=== PATIENT | female | born 1940 | race Caucasian/White ===

== ENCOUNTER → 2019-06-22 | Outpatient (RCR) | payer OTHER ==
--- NOTE | 2019-06-05 16:56 | CARECAPL ---
Assessment Account #s: Initial Assessment General Diagnoses: STEMI, PTCA Date of event: February 07, 2019 Physician: Sergei Ibarra Date Entered Program: Jun 05, 2019 Risk strat for cardiac event: High Exercise Date: Jun 05, 2019 Assessment: Initial Assessment Stages of change: Contemplate Exercise Prescription Plan TO EDUCATE AND BUILD ENDURANCE THROUGH MONITORED EXERCISE Modalities initiated: Treadmill (WILL ADD), Cardio-Strider (WILL ADD), Nustep (WILL ADD), Arm Aerometer (WILL ADD), Dumbells (WILL ADD), Recumbent Bike (WILL ADD) Frequency: 3 Duration (Minutes) 30 - 60 minutes total exercise a day. 15 - 20 work intervals in minutes. PRN rest intervals in minutes. Functional Capacity Goal Sustained Metabolic Equivalent of a task (MET) goal of 2.5-3.5 for 15-20 minutes. Intensity: 3-Moderate Progression (METS) Increase by: 0.5 METS every: 5 sessions TOLERATED Angina with ex: No Target Heart Rate REST +35-40 Resistance Training: Yes Weight (pounds): 1 Reps: 12-15 Hypertension: Yes Hypertension controlled with: Medication (METOPROLOL/ENTRESTO) Resting 145/64 Medications Scheduled Amiodarone Hcl (Pacerone), 200 MG PO DAILY, (Reported) Aspirin (Ecotrin), 81 MG PO DAILY, (Reported) Atorvastatin Calcium (Atorvastatin Calcium), 1 TAB PO DAILY, (Reported) Bisacodyl (Dulcolax), 5 MG PO ASDIRECTED, (Reported) Clopidogrel Bisulfate (Plavix), 75 MG PO DAILY, (Reported) Furosemide (Furosemide), 1 TAB PO BID, (Reported) Metoprolol Succinate (Metoprolol Succinate), 1 TAB PO DAILY, (Reported) Potassium Chloride (K-Tab ER), 20 MEQ PO DAILY, (Reported) Sacubitril/Valsartan (Entresto 24 mg-26 mg Tablet), 1 TAB PO BID, (Reported) Med Change: No Intervention Education: Self pulse (EXPLAINED TAKING OWN PULSE), Ex safety (DISCUSSED WARM UP/COOL DOWN, STRETCHING), S/S to report (DISCUSSED CHEST PAIN/SOB), Low NA diet (EDUCATED ON LOW SODIUM DIET/NOT ADDING SALT TO FOOD), RPE Scale (EDUCATED ON SCALE OF DIFFICULTY FOR EQUIPMENT), warm up/cool down (REVIEWED IMPORTANCE OF WARM UP/COOL DOWN PRIOR TO AND FOLLOWING EXERCISE), Physical Active (DISCUSSED IMPORTANCE OF CONTINUED EXERCISE FOLLOWING CARDIAC REHAB PROGRAM) Target Goals Individual exercise Rx (1) BP 140/90 or 130/80 if DM or CKD (1) Aerobic active 30+min 5 days per week (1) Nutrition Date: Jun 05, 2019 Assessment: Initial Assessment Stages of change: Contemplate Lipid- med/supplement ATORVASTATIN 80 MG DAILY Med Change: No Diabetes Diabetes: No Monitor Blood Sugar at home: No Medication Change: No Weight Management Weight (lbs): 136 Height (inches): 65 Waist Circumference (Inches): 37.5 BMI: 22.6 Weight goal: 130 Special Diet: low salt, mediteranean diet, low-fat Alcohol: none Diet Access Tool: Rate your plate Score: 59 Current Weight (pounds): 136 Weight Goal 130 Intervention 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 Nurse/patient discussion: Yes Dietary Goals DECREASE PORTIONS/LOW SALT Diet Class: Yes (WILL SEE STUNNER WHILE IN PROGRAM) Referral to Diabetes education: No Referral to lipid clinic: No Referral to weight mangement p: No Education Eating Healthy Target goal LDL-C<100 if triglycerides are >200 Non-HDL-C should be <130 (1) LDL-C<70 for high risk patients (4) HbA1c<7% (1) BMI<25 Waist cir<40in M/<35in F (1) Education Date: Jun 05, 2019 Assessment: Initial Assessment Learning Barriers: ready Knowledge Test Score: 8 Stages of change: Contemplate Family Support: Yes Tobacco use: No Tobacco Use Smokeless tobacco: No Intervention Referral to smoking cessation: No Individual education and couns: No Tobacco Adjunct: No Education class schedule given: No Attended education classes: No Education: CAD, Risk factors, med compliance, cardiac A&P, Angina S/S, Sexuality Target Goals Complete cessation of tobacco use (1). Psychosocial Date: Jun 05, 2019 Assessment: Initial Assessment Psych Test (Initial/Discharge) Tool Used: Other (PHQ-9) Stages of change: Contemplate Intervention Physician Consult: No Physician Referral: No Med Change: No Stress Management Class: No Uses Stress Management Skills: Yes Education Education: Coping Techniques (RELAXATION,LISTENING TO MUSIC, READING), S/S depression (WITHDRAWAL, LACK OF INTEREST AND APPETITE), Relaxation Techniques (READING, LISTENING TO MUSIC, QUIET TIME) Target Goal Assess presence or absence of depression using a valid screening tool (1). Maximize coping skills (2). Positive support system (2). Patient/Program Goal Preventative Medication: Yes Aspirin, Yes Clopidogrel, Yes Beta blockade, Yes Statin/OTR lipid Lowering Fall Risk Assess: Yes (NOT A FALL RISK) Provider Assessment Session Number: 1 Provider Assessment: Proceed with rehab Wade Tucker RN Jun 05, 2019 16:56
[~2019-06-22] MED LIST: ATOR80TA59 PO; DULC5TAB PO; ECOT81TA5 PO; ENTR1TAB PO; FURO20TA2 PO; K-TA10TA2 PO; METO1TAB32 PO; PACE200T PO; PLAV1TAB2 PO
== END ==
LOC: M CR 06-05 12:18
PROVIDERS: ATTEND Internal Medicine Cardiovascular Disease
DX: I22.0 Subsequent ST elevation (STEMI) myocardial infarction of anterior wall (principal)

== ENCOUNTER 2019-07-15 11:10 | Outpatient (RCR) | payer OTHER ==
--- NOTE | 2019-07-06 14:05 | CARECAPL ---
Assessment Account #s: Re-Assessment I General Diagnoses: STEMI, PTCA Date of event: February 07, 2019 Physician: Sergei Ibarra Date Entered Program: Jun 05, 2019 Risk strat for cardiac event: High Exercise Date: Jun 26, 2019 Assessment: Re-Assessment I Stages of change: Contemplate Exercise Prescription Plan Educate on cardiovascular disease and increase endurance, strength and flexibili ty through monitored exercise program Modalities initiated: Treadmill (speed 2.0 incline 0.5 for 15 minutes mets 2.81 REP 2.5), Nustep (resistance of 3 for 10 minutes mets 4.5 RPE 3), Arm Aerometer (resistance of 2.5 for 10 minutes mets 2.5 RPE 3), Dumbells (2 pound weights 1 set for 15 reps RPE 3), Recumbent Bike (resistance of 3 for 8 minutes mets 2.6 RPE 3.5) Frequency: 1 Duration (Minutes) 30 - 60 minutes total exercise a day. 15 - 20 work intervals in minutes. PRN rest intervals in minutes. Functional Capacity Goal Sustained Metabolic Equivalent of a task (MET) goal of 3.5-4.0 for 15-20 minutes. Intensity: 3-Moderate Progression (METS) Increase by: 0.5 METS every: 3-5 sessions Angina with ex: No Target Heart Rate Rest + 35-40 per beta juan therapy. Resistance Training: Yes Weight (pounds): 2 Reps: 12-15 Hypertension: No Hypertension controlled with: Medication Resting 110/60 Peak Exercise BP And 46/70 Meds Lopressor and entresto Medications Scheduled Amiodarone Hcl (Pacerone), 200 MG PO DAILY, (Reported) Aspirin (Ecotrin), 81 MG PO DAILY, (Reported) Atorvastatin Calcium (Atorvastatin Calcium), 1 TAB PO DAILY, (Reported) Bisacodyl (Dulcolax), 5 MG PO ASDIRECTED, (Reported) Clopidogrel Bisulfate (Plavix), 75 MG PO DAILY, (Reported) Furosemide (Furosemide), 1 TAB PO BID, (Reported) Metoprolol Succinate (Metoprolol Succinate), 1 TAB PO DAILY, (Reported) Potassium Chloride (K-Tab ER), 20 MEQ PO DAILY, (Reported) Sacubitril/Valsartan (Entresto 24 mg-26 mg Tablet), 1 TAB PO BID, (Reported) Education Goals Met: Yes (will continue to educate throughout program. 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 Psychosocial Date: Jul 06, 2019 Assessment: Re-Assessment I Stages of change: Contemplate Med Change: No Stress Management Class: No Uses Stress Management Skills: No Education Goals Met: No (due to poor attendance patient has not been educated) Target Goal Assess presence or absence of depression using a valid screening tool (1). Maximize coping skills (2). Positive support system (2). Patient/Program Goal Preventative Medication: Yes Aspirin, Yes Beta blockade, Yes Statin/OTR lipid Lowering Fall Risk Assess: Yes (negative for fall risk) Provider Assessment Session Number: 3 Provider Assessment: Proceed with rehab (patient is not progressing due to poor attendance and poor motivation. Patient has attended 3 sessions of cardiac rehabilitation in the last month.) Yaquelin Ogden RN Jul 06, 2019 14:05
== END 2019-07-23 ==
LOC: M CR 11:10
PROVIDERS: ATTEND Internal Medicine Cardiovascular Disease
DX: I22.0 Subsequent ST elevation (STEMI) myocardial infarction of anterior wall (principal)

== ENCOUNTER → 2024-04-20 | Outpatient (CLI) | payer OTHER ==
[~2024-04-20] MED LIST changes: +CLOP75TA99 PO; -K-TA10TA2 PO; -PLAV1TAB2 PO; +POTA-165 PO
== END ==
LOC: M RAD 15:09
PROVIDERS: ATTEND Physician Assistant
DX: R60.0 Localized edema (principal); I25.10 Atherosclerotic heart disease of native coronary artery without angina pectoris; I42.9 Cardiomyopathy, unspecified

== ENCOUNTER → 2025-08-27 | Outpatient (CLI) | payer MEDICARE | LOC: M RAD 09:25 | PROVIDERS: ATTEND Family Medicine | DX: R10.13 Epigastric pain (principal); K76.89 Other specified diseases of liver ==